=== PATIENT | male | born 1955 | race Caucasian/White ===

== ENCOUNTER 2017-03-25 11:23 | Day surgery (SDC) | payer OTHER ==
[~2017-03-25] VITALS: Ht 170.2 cm; Wt 93.7 kg
[~2017-03-25 11:23] MED LIST: ATOR20TA38 PO; ATOR40TA68 PO; BUPR150F BC; CLOP75TA28 PO; DIPH1TAB25 PO; FINA5TAB4 PO; FLUT16SP17 NASAL; LOSA25TA5 PO; RANO10002 PO; TIOT18CA INHALATION; TIZA4CAP6 PO; [UNRECOGNIZED DRUG - OTHER]; [UNRECOGNIZED DRUG - OTHER]
[2017-03-25 12:36] VITALS: Ht 170.2 cm; Wt 93.7 kg
[2017-03-25 12:41] VITALS: BP 110/75; PULSE 89; RESP 12
[2017-03-25] MEDS ORDERED: ATEN-51 PO (12:51)
[2017-03-25] MEDS ORDERED: DICY10CA60 PO (12:51)
[2017-03-25] MEDS ORDERED: ATOR40TA68 PO (12:51)
[2017-03-25] MEDS ORDERED: ASPI81TA3 PO (12:51)
[2017-03-25] MEDS ORDERED: BISA-57 PO (12:52)
[2017-03-25] MEDS ORDERED: SERT50TA PO (12:58)
[2017-03-25] MEDS ORDERED: ADVIL PO (12:58)
[2017-03-25] MEDS ORDERED: CLOP75TA27 PO (12:58)
[2017-03-25] MEDS ORDERED: TRAM50TA2 PO (12:58)
[2017-03-25] MEDS ORDERED: HYDR-905 PO (12:58)
[2017-03-25] MEDS ORDERED: ALPR1TAB2 PO (12:58)
[2017-03-25] MEDS ORDERED: SLEEP AID PO (12:58)
[2017-03-25] MEDS ORDERED: ESOM40CA PO (12:58)
[2017-03-25] MEDS ORDERED: STOOL SOFTENER PO (12:58)
[2017-03-25] MEDS ORDERED: MIDAZOLAM 1 MG/ML 2 ML INJ ONE (13:47)
[2017-03-25] MEDS ORDERED: LIDOCAINE 2% (SDV) 5 ML INJ ONE (13:47)
[2017-03-25] MEDS ORDERED: PROPOFOL 20 ML ONE (13:47)
[2017-03-25 14:30] VITALS: BP 126/89; PULSE 86; RESP 20
--- NOTE | 2017-03-25 14:52 | GILP ---
DATE OF PROCEDURE: 03/25/2017 PREOPERATIVE DIAGNOSES: 1. Abdominal pain, occult bleeding. 2. The patient also has history of duodenal ulcer. POSTOPERATIVE DIAGNOSES: 1. Distal esophagitis. 2. A 4 cm hiatal hernia. 3. Gastritis, quite diffuse. Biopsy done for Helicobacter pylori. 4. Duodenal ulcer has healed, is scarred, with duodenitis still present. PROCEDURE DONE: Esophagogastroduodenoscopy, biopsy. SURGEON: Jose Carlos Burks MD ANESTHESIOLOGIST: Khari Jacobsen DO DESCRIPTION OF PROCEDURE: The patient was put in left lateral decubitus. Because of his cardiac co ndition, the patient was sedated and monitored by the anesthesiologist. Very carefully advanced an Olympus video upper endoscope into the esophagus, stomach and duodenum. The findings are: Distal e sophagitis at 35 to 36 cm. Nearly 4 cm hiatus hernia was noted, this looks more paraesophageal than sliding type and retroflexion also done, this was confirmed. Diffuse gastritis noted in the stomac h from body and fundus and antrum, so random biopsy done to rule out H. pylori. When entering the d uodenal bulb, previous duodenal ulcer has left a scar. There is mild duodenitis noted in the duoden al bulb. First and second part of the duodenum normal. Scope was withdrawn after biopsies in the s tomach. The patient had no complication. Because of his general multiple medical issues, we will continue to treat him conservatively with PP I. Await for biopsy report. If H. pylori positive, we will treat him so. Dictated By: JOSE CARLOS AQUINO Conf#: [id number] DID#: [id number] CC: LEE HAWKINS MD;*EndCC*
== END 2017-03-25 19:43 | disposition home or self-care (01) ==
LOC: GIL 11:23
PROVIDERS: ATTEND Internal Medicine
DX: K29.50 Unspecified chronic gastritis without bleeding (principal); K26.9 Duodenal ulcer, unspecified as acute or chronic, without hemorrhage or perforation; K29.80 Duodenitis without bleeding; K20.8 Other esophagitis; I25.10 Atherosclerotic heart disease of native coronary artery without angina pectoris; I73.9 Peripheral vascular disease, unspecified; Z86.73 Personal history of transient ischemic attack (TIA), and cerebral infarction without residual deficits; F41.9 Anxiety disorder, unspecified
CPT/HCPCS: 43239; 88305; 88312; J2250; Z7610